=== PATIENT | male | born 1940 | race Caucasian/White ===

== ENCOUNTER 2021-10-20 22:03 | Inpatient (IN) | payer MEDICARE, OTHER ==
[~2021-10-20] VITALS: Ht 175.3 cm; Wt 62.5 kg
[2021-10-20 22:36] LABS: BASOPHILS ABSOLUTE AUTO 0.02 K/mm3 (0.00-0.23); BASOPHILS PERCENT AUTO 0 % (0-2); EOSINOPHILS ABSOLUTE AUTO 0.01 K/mm3 (0.00-0.68); EOSINOPHILS PERCENT AUTO 0 % (0-6); Hematocrit 37.6 % (37.0-53.0); Hemoglobin 12.8 g/dL (13.5-17.5); IMMATURE GRAN ABSOLUTE AUTO 0.05 K/mm3 (0.00-0.10); IMMATURE GRAN PERCENT AUTO 0 % (0-1); LYMPHOCYTES ABSOLUTE AUTO 0.49 K/mm3 (0.84-5.20); LYMPHOCYTES PERCENT AUTO 4 % (21-46); MONOCYTES ABSOLUTE AUTO 1.53 K/mm3 (0.16-1.47); MONOCYTES PERCENT AUTO 13 % (4-13); Mean Corpuscular Volume 85 fL (80-100); Mean Platelet Volume 9.7 fL (9.1-12.4); NEUTROPHILS ABSOLUTE AUTO 9.67 K/mm3 (1.96-9.15); NEUTROPHILS PERCENT AUTO 82 % (41-73); Platelet Count 325 K/mm3 (150-400); RDW Coefficient Variation 12.9 % (11.7-14.2); RDW Standard Deviation 40.1 fL (35.1-46.3); Red Blood Cell Count 4.42 M/mm3 (4.30-5.90); White Blood Cell Count 11.77 K/mm3 (4.00-11.30)
[2021-10-20 22:55] LABS: Alanine Aminotransfer (ALT/SGP 27 U/L (12-78); Albumin, Blood 2.5 g/dL (3.4-5.0); Albumin/Globulin Ratio 0.6 (0.8-1.8); Alk Phos 85 U/L (50-136); Anion Gap 9 mmol/L (6-16); Aspartate Aminotrans (AST/SGOT 25 U/L (12-37); Bilirubin, Total 0.7 mg/dL (0.1-1.0); Blood Urea Nitrogen 19 mg/dL (8-24); Bun/Creatinine Ratio 19.7 (12.0-20.0); CO2, Blood 24 mmol/L (21-32); Chloride, Blood 106 mmol/L (98-108); Creatinine, Blood 0.97 mg/dL (0.60-1.20); Globulin, Blood 4.4 g/dL (2.2-4.0); Glomerular Filtration Rate >60 (60-); Glucose, Blood 185 mg/dL (70-99); Potassium, Blood 3.8 mmol/L (3.5-5.5); Sodium, Blood 139 mmol/L (136-145); Total Protein, Blood 6.9 g/dL (6.4-8.2)
[2021-10-20 23:29] LABS: Influenza A, PCR NEGATIVE (NEGATIVE); Influenza B, PCR NEGATIVE (NEGATIVE); Resp Syncytial Virus, PCR NEGATIVE (NEGATIVE)
[2021-10-21] LABS: SARS-Cov-2 (COVID-19) PCR, MMC POSITIVE (NEGATIVE)
[2021-10-21] MEDS ORDERED: TAMS.4ER PO (00:40)
[2021-10-21 03:52] LABS: BASOPHILS ABSOLUTE AUTO 0.01 K/mm3 (0.00-0.23); BASOPHILS PERCENT AUTO 0 % (0-2); EOSINOPHILS PERCENT AUTO 0 % (0-6); Hematocrit 36.9 % (37.0-53.0); Hemoglobin 12.3 g/dL (13.5-17.5); IMMATURE GRAN ABSOLUTE AUTO 0.05 K/mm3 (0.00-0.10); IMMATURE GRAN PERCENT AUTO 1 % (0-1); LYMPHOCYTES ABSOLUTE AUTO 0.48 K/mm3 (0.84-5.20); LYMPHOCYTES PERCENT AUTO 5 % (21-46); MONOCYTES ABSOLUTE AUTO 0.69 K/mm3 (0.16-1.47); MONOCYTES PERCENT AUTO 7 % (4-13); Mean Corpuscular HGB 28.5 pg (26.0-34.0); Mean Corpuscular HGB Conc 33.3 g/dL (31.5-36.5); Mean Corpuscular Volume 85 fL (80-100); Mean Platelet Volume 9.9 fL (9.1-12.4); NEUTROPHILS ABSOLUTE AUTO 9.42 K/mm3 (1.96-9.15); NEUTROPHILS PERCENT AUTO 88 % (41-73); Platelet Count 318 K/mm3 (150-400); RDW Coefficient Variation 13.1 % (11.7-14.2); RDW Standard Deviation 40.8 fL (35.1-46.3); Red Blood Cell Count 4.32 M/mm3 (4.30-5.90); White Blood Cell Count 10.65 K/mm3 (4.00-11.30)
[2021-10-21 04:05] LABS: Anti-Xa UFH, PHA Monitoring <0.10 IU/mL; International Normalized Ratio 1.14; Prothrombin Time Results 11.9 Sec (9.7-11.5)
[2021-10-21 04:09] LABS: Anion Gap 10 mmol/L (6-16); Blood Urea Nitrogen 17 mg/dL (8-24); Bun/Creatinine Ratio 18.7 (12.0-20.0); CHOL/HDL RATIO 3.5; CO2, Blood 23 mmol/L (21-32); Calcium, Blood 8.8 mg/dL (8.5-10.1); Chloride, Blood 107 mmol/L (98-108); Cholesterol 111 mg/dL (50-200); Creatinine, Blood 0.91 mg/dL (0.60-1.20); Glomerular Filtration Rate >60 (60-); Glucose, Blood 189 mg/dL (70-99); HDL Cholesterol 32 mg/dL (>39); LDL/HDL RATIO 1.9; Low Density Lipoprotein Chol 60 mg/dL (0-110); Potassium, Blood 4.3 mmol/L (3.5-5.5); Sodium, Blood 140 mmol/L (136-145); Triglycerides 97 mg/dL (30-160); Very Low Density Lipoprot Chol 19 mg/dL (6-32)
--- NOTE | 2021-10-21 06:00 | NUR ---
FIRE OFFICER SUMMARY PT IS AXO 4 AND COMMUNICATING APPROPRIATELY. PT HAS DENIED ANY CP OR PRESSURE THIS SHIFT. O2 SATS REMAIN >90% ON 2.5L NC. PT'S BP WNL AND STABLE. TELE SHOWED ST 110'S WHEN HE ARRIVED BUT WAS SR IN THE 70'S AFTER RECIEVING LOPRESSOR. TROPONIN HAS CONTINUED TO RISE AND PROVIDER NOTIFIED W NO NEW ORDERS THE HEPARIN HAD YET TO BE STARTED BEFORE THE LAST TROPONIN WAS DRAWN. PT HAS SLEPT COMFORTABLY IN BED WITH CALL LIGHT IN REACH. HEPARIN GTT RUNNING. WILL REPORT TO ONCOMING CLARICE
--- NOTE | 2021-10-21 09:09 | NUR ---
CARE ASSUMPTION / UPDATE PT A&O X4. ECHO DONE IN RM SHORTLY AFTER CARE ASSUMPTION. MONITOR SHOWING SR-ST, HR 90's-110. SPO2 > 92% ON 5L NC UPON CARE ASSUMPTION. PT THEN DESATING INTO LOW 80's, REQUIRING APPLICATION OF OXYMIZER. RR 20's & SPO2 88-93% ON 12L OXYMIZER. CRITICAL LAB RESULT FOR TROPONIN TRENDING UP. MD NATARAJAN TO PT , UPDATED ON LATEST TROPONIN LEVEL & PT RESPIRATORY STATUS. MD NATARAJAN W/ ORDERS FOR BREATHING TX's PER RT. HEPARING GTT INFUSING PER ORDERS. PT DENIES PAIN/DISCOMFORT, REPORTING BREATHING FEELING MORE RELAXED W/ OXYMIZER. RT NOTIFIED OF NEW RESPIRATORY ORDERS FOR PT. WILL CONTINUE TO MONITOR & PROVIDE CARE.
--- NOTE | 2021-10-21 11:43 | NUR ---
Upon receiving a referral for spiritual care, I visit patient. He shares with me about the events that led to his hospitalization, his life and family history and his views on latter day. Patient tells me that he has absolute peace in the midst of his COVID diagnosis and feels that he will recover rapidly now that he is getting the treatment that he needs. I encourage self-care, reinforce helpful attitudes and provide therapeutic listening and a calming presence. Patient responds well and show signs of an elevated mood. I will continue to remain available to patient and family.
--- NOTE | 2021-10-21 13:22 | NUR ---
OXYGEN UPDATE PT A&O X4. PT W/ DESAT TO 80's WHILE EATING, REQUIRING TEMPORARY INCREASE TO 100% FIO2 & ENCOURAGEMENT TO TAKE DEEP BREATHS IN BETWEEN BITES. PT THEN W/ LITTLE IMPROVEMENT IN SPO2 POST MEAL DESPITE REST & INCREASE IN O2. PT DENIES DISCOMFORT AND SHOWS NO DISTRESS. PT REPOSITIONED ONTO SIDE W/ LITTLE IMPROVEMENT, PT THEN REPOSITIONED INTO PRONE POSITION W/ IMPROVEMENT. PT NOW SPO2 > 90% ON HI-TESS @ 50L, FIO2 60%.
--- NOTE | 2021-10-21 17:48 | NUR ---
OXYGEN UPDATE RT TO RM D/T PT DESAT, REQUIRING INCREASE IN HI-TESS THERAPY & PRONING. RT W/ ADJUSTMENTS TO HI-TESS SETTINGS & THEN W/ TRANSITION TO CPAP. CLIENT SERVICE MANAGER, THIS RN, & RT IN PT RM TO DISCUSS PT CODE STATUS. PT CONFIRMING OKAY FOR INTUBATION IF NEEDED. PT AT BEDSIDE, SAYING "NO" FOR FULL CODE, NOT WANTING PT TO BE INTUBATED IF NEEDED. PT DAUGHTER AT BEDSIDE ENCOURAGING PT TO ALLOW PT TO MAKE OWN DECISION. PT CONFIRMING OKAY FOR INTUBATION IF NEEDED.
--- NOTE | 2021-10-21 18:45 | NUR ---
TRANSFER TO ICU MD REYES NOTIFIED OF PT PROGRESSING RESPIRATORY STATUS W/ PT ON CPAP: 12, 70% O2 & RR 30's. W/ ORDER FOR TRANSFER TO ICU. ALSO MADE AWARE OF PT STATING REMDESEVIR TO NOT BE GIVEN. W/ ORDER FOR REMDESEVIR TO BE DC'd. PT TRANSFERED TO ICU-11 @ APPROX 1830 & REPORT GIVEN TO ACCEPTING RN. PT S/O & DAUGHTER GONE HOME FOR THE NIGHT.
--- NOTE | 2021-10-21 18:51 | NUR ---
TRANSFER TO ICU 11 PT ARRIVED TO ICU 11 VIA BED AT 1838. PT IS AWAKE, ALERT, AND ORIENTED. PT DENIES ANY PAIN, SOB, OR DISCOMFORT AT THIS TIME. PT CURRENTLY ON CPAP OF 12, FIO2 70%. VITAL SIGNS STABLE. RR 30'S. HEPARIN INFUSING AT 17 UNITS/KG/HR THROUGH PERIPHERAL IV. WILL CONTINUE TO MONITOR AND REPORT OFF TO ONCOMING RN.
[2021-10-22 03:31] LABS: BASOPHILS ABSOLUTE AUTO 0.02 K/mm3 (0.00-0.23); BASOPHILS PERCENT AUTO 0 % (0-2); EOSINOPHILS PERCENT AUTO 0 % (0-6); Hematocrit 32.6 % (37.0-53.0); IMMATURE GRAN ABSOLUTE AUTO 0.14 K/mm3 (0.00-0.10); IMMATURE GRAN PERCENT AUTO 1 % (0-1); LYMPHOCYTES ABSOLUTE AUTO 0.62 K/mm3 (0.84-5.20); LYMPHOCYTES PERCENT AUTO 4 % (21-46); MONOCYTES ABSOLUTE AUTO 1.67 K/mm3 (0.16-1.47); MONOCYTES PERCENT AUTO 10 % (4-13); Mean Corpuscular HGB 28.9 pg (26.0-34.0); Mean Corpuscular HGB Conc 33.7 g/dL (31.5-36.5); Mean Corpuscular Volume 86 fL (80-100); NEUTROPHILS ABSOLUTE AUTO 13.92 K/mm3 (1.96-9.15); NEUTROPHILS PERCENT AUTO 85 % (41-73); Platelet Count 313 K/mm3 (150-400); RDW Coefficient Variation 13.2 % (11.7-14.2); RDW Standard Deviation 41.7 fL (35.1-46.3); White Blood Cell Count 16.37 K/mm3 (4.00-11.30)
[2021-10-22 03:45] LABS: Anion Gap 6 mmol/L (6-16); Blood Urea Nitrogen 21 mg/dL (8-24); Bun/Creatinine Ratio 25.9 (12.0-20.0); CO2, Blood 26 mmol/L (21-32); Calcium, Blood 8.5 mg/dL (8.5-10.1); Chloride, Blood 108 mmol/L (98-108); Creatinine, Blood 0.81 mg/dL (0.60-1.20); Glomerular Filtration Rate >60 (60-); Glucose, Blood 188 mg/dL (70-99); Potassium, Blood 4.2 mmol/L (3.5-5.5); Sodium, Blood 140 mmol/L (136-145)
--- NOTE | 2021-10-22 06:10 | NUR ---
Rested through out night. Tolerated CPAP, maintaining O2 sats mid to high 90's. RR 26-30 with no distress. Heparin drip increased at beginning of shift to 19 units, infusing without difficulty. AntiXa in theraputic range this am, will continue same rate and repeat labs to monitor per orders.
--- NOTE | 2021-10-22 07:28 | NUR ---
ASSUME CARE: I have assumed care of this patient.
--- NOTE | 2021-10-22 10:32 | NUR ---
UPDATE: This RN spoke with pt's daughter and updated her on pt status.
--- NOTE | 2021-10-22 18:35 | NUR ---
SHIFT SUMMARY: Pt up in chair for most of day per his preference. Alex was able to stand, transfer, and reposition himself independantly; he tolerated this well while on Arivo. Current Airvo settings at 70%, 40 L/min. Heparin inceased to 21. He uses urinal independantly. Pt spoke to RD to clarify dietary preferences; pt identifies as [employer], following his religous practices and prefers to not eat dairy. Alex's and daughter were at bedside this afternoon interacting with pt; pt and his family were very pleasent to work with.
[2021-10-23 03:34] LABS: Hematocrit 30.6 % (37.0-53.0); Hemoglobin 10.2 g/dL (13.5-17.5); Mean Platelet Volume 10.2 fL (9.1-12.4); Platelet Count 307 K/mm3 (150-400)
--- NOTE | 2021-10-23 06:29 | NUR ---
Changed to CPAP during sleep due to desat down to low 80's. Sats mid 90's most of night with drops into high 80's. Responded well with turning far to side. FiO2 increased to 60% heart rhythem SR with PVC's and PACs documented strips.
--- NOTE | 2021-10-23 19:13 | NUR ---
SHIFT SUMMARY: Pt up in chair for most of day again per his request. His appetite has improved some today. Heparin bolus was given and heparin was increased to 25. FiO2 titrated down to 60. Family at bedside throughout the day.
[2021-10-24 02:29] LABS: Hematocrit 32.4 % (37.0-53.0); Hemoglobin 10.6 g/dL (13.5-17.5); Mean Platelet Volume 10.4 fL (9.1-12.4); Platelet Count 326 K/mm3 (150-400)
--- NOTE | 2021-10-24 06:39 | NUR ---
RESTING QUIETLY AT THIS TIME. HEPARIN INFUSING WITHOUT DIFFICUTIES. NEXT ANTI XA AT 0800. HYDRAULIC JACK ADJUSTER TO CPAP 12/50% FiO2 during night due to low sats. tolerating well. denies needs at this time
--- NOTE | 2021-10-24 15:34 | NUR ---
CODE STATUS UPDATE: This RN spoke with pt's family regarding his code status. and daughter state that pt does not wish to be intubated, however he would still like to receive CPR. Dr. Villalta called and notified; verbal order placed.
--- NOTE | 2021-10-24 15:58 | NUR ---
DNI: Code status updated and yellow limited code order sign hung outside of room.
--- NOTE | 2021-10-24 19:19 | NUR ---
Lengthy conversation with pt and family regarding advance directive, POA and selby. Pt wnat to be full code and will have family with draw care if needed. We discussed in great detail the differnt levels aof care and how to address changes in health. Will follow up they want to do a will, poa and AD. will gete them information.
--- NOTE | 2021-10-24 19:22 | NUR ---
SHIFT SUMMARY: Pt on Airvo and up in charge for most of day again. He returned to bed around 1830. He is tolerating his diet well, but prefers softer foods. Family has been at bedside and very helpful. Pt able to transfer and reposition independantly, only requiring cord management. Heparin continues at 25.
--- NOTE | 2021-10-24 19:52 | NUR ---
PT OXYGEN SAT DROPPED TO 82% ON ARIVO 70% FIO2. WENT INTO PT ROOM AND HE STATED HE HAD SOME SHORTNESS OF BREATH. INCREASED THE FIO2 TO 100% AND CALLED RT TO PLACE PT ON CPAP. OXYGEN SAT RECOVERED TO 93% ON THE 100% FIO2. PT DENIED ANY ACUTE DISTRESS AT THAT TIME. CPAP PLACED ON PT TO IMPROVE OXYGENATION.
--- NOTE | 2021-10-24 21:37 | NUR ---
PT UP TO BEDSIDE COMMODE FOR BM W/CPAP ON AT 55%FIO2. PT DESATURATED INTO THE LOW 80'S. FIO2 INCREASED WHILE PT WAS USING THE BATHROOM. PT SATS WENT TO HIGH 80'S. PT BACK TO BED, TITRATING FIO2 BACK DOWN TOLERATED. SATS GREATER THAN 90%. PT WAS SIGNIFICANTLY SHORT OF BREATH WITH THIS ENDEAVOUR AND IT TOOK SEVERAL MINUTES FOR HIM TO RECOVER.
--- NOTE | 2021-10-25 03:01 | NUR ---
PT HAS HAD DIFFICULTY WHILE VOIDING DUE TO AN INCREASE IN HEART RATE OF 40 BEATS AND A DECREASE IN OXYGEN SAT ON CPAP DESPITE GOING UP ON FIO2 WHEN PT IS TRYING TO VOID IN URINAL. IT TAKES HIM SEVERAL MINUTES TO RECOVER AND HE IS EXTREMELY TACHYPNIC AND FATIGUED AFTER VOIDING.
[2021-10-25 03:35] LABS: Hematocrit 31.2 % (37.0-53.0); Hemoglobin 10.4 g/dL (13.5-17.5)
[2021-10-25 03:52] LABS: Anti-Xa UFH, PHA Monitoring 0.48 IU/mL; International Normalized Ratio 1.18; Prothrombin Time Results 12.3 Sec (9.7-11.5)
--- NOTE | 2021-10-25 07:36 | NUR ---
ASSUMED CARE: PT RESTING QUIETLY IN BED AT THIS TIME. CPAP IN PLACE WITH SETTINGS AT 16 AND 70% FIO2. HEPARIN GTT RUNNING, SETTINGS VERIFIED PER SEP. NSR WITH PACS WITH A RATE 70S TO 80S. NO ACUTE NEEDS OR CONCERNS AT THIS TIME.
[2021-10-25 08:29] LABS: Source, Urine Foley catheter
[2021-10-25 08:43] LABS: Appearance, Urine Clear (Clear); Bilirubin, Urine Neg (Neg); Blood, Urine 1+ (Neg); Color, Urine Yellow (P-Yellow); Glucose Qualitative, Urine Neg (Neg); Ketones, Urine Neg (Neg); Leukocyte Esterase, Urine 1+ (Neg); Nitrite, Urine Neg (Neg); Protein, Urine Neg (Neg); Urobilinogen, Urine NORM (Normal)
--- NOTE | 2021-10-25 08:59 | NUR ---
PT INSISTED ON GETTING TO BSC FOR BM. SPRING ASSEMBLER SUPERVISOR REPORTS PT DESATURATED INTO 70S WHILE ON 100% FIO2 ON AIRVO. TOOK HIM SEVERAL MINUTES TO RECOVER TO LOW 90S. ASKED DR NATARAJAN IF HE WOULD LIKE PULMONOLOGY CONSULT DUE TO PT'S WORSENING STATUS OVERNIGHT. DR NATARAJAN STATES HE WILL DISCUSS CASE WITH DR SUAREZ
[2021-10-25 09:00] LABS: Bacteria Rare /hpf; Red Blood Cells, Urine 0-2 /hpf (0-2); Squamous Epithelial Cells Not Seen /hpf (Few)
--- NOTE | 2021-10-25 10:23 | NUR ---
PALLIATIVE CARE NURSE STATES THEY ARE AWARE OF PT AND HAD A KENISHA CONVERSATION WITH FAMILY YESTERDAY REGARDING CODE STATUS. DUE TO PT HAVING A WORSENING STATUS REGARDING ACTIVITY TOLERANCE, THIS RN PLACED PHONE CALL TO PT'S BUT GOT VOICE MAIL. REQUESTED THAT CALL BACK
--- NOTE | 2021-10-25 12:27 | NUR ---
PT'S AND DAUGHTER CAME TO VISIT PT. UPDATED ON PT'S STATUS THAT HE IS REQUIRING MORE OXYGEN AND NOT TOLERATING ACTIVITY. WARNED THEM THAT HE IS GETTING CLOSER TO NEEDING INTUBATION BUT THERE IS STILL ROOM FOR OTHER INTERVENTION BEFORE THAT. HOSPITALIST SPOKE WITH PING PONG TABLE ASSEMBLER TO MAKE THEM AWARE OF PT'S CASE AND SITUATION. PALLIATIVE CARE CAME TO BEDSIDE TO ANSWER QUESTIONS. PT SITTING UPRIGHT IN BED EATING LUNCH. NO ACUTE NEEDS AT THIS TIME.
--- NOTE | 2021-10-25 14:26 | NUR ---
Patient is alert and verbal. Patient tells me that some times he feels as if he is progressing other times he wonders if he will survive. He is far less confident of his recovery this visit compared to my last visit with patient. Patient is pleasant and enjoys conversation. He talks about how his family keeps him fighting and that he is hoping for the best possible outcome. He is more open to discussion centered around his personal spirituality today and welcomes prayer. I galdly provide prayer. We discuss how he is overall a very positive person and that it is a healthy mindset to focus on recovery and healing but also it is important to realize how deep he is into this virus while simultaneously dealing with other medical complications, which he states that he comprehends. I provide therapeutic listening, a supportive calming presence and gentle peer counselor. I will continue to remain available to patietn and family. Patient responds well and shows signs of being reflective yet hopeful.
--- NOTE | 2021-10-25 18:24 | NUR ---
SHIFT SUMMARY: PT ON AIRVO AT 40L AND 85%. SATTING MID 90S WITH THIS. FAMILY AT BEDSIDE AND HAS BEEN UPDATED TO PT'S STATUS. PT REMAINS ON HEPARIN GTT PER EMAR. PT RESTED TODAY AND USED RINCON CATH AND BEDPAN FOR VOIDING. REPOSITION Q2. NO ACUTE NEEDS OR CONCERNS AT THIS TIME.
--- NOTE | 2021-10-25 20:42 | NUR ---
PT ON ARVO 40L 80%FIO2 -OXYGEN SAT DROPPED TO 82% AND MAINTAINED. FIO2 INCREASED TO 100%. NOTIFED RT VICKY KEARNS AND REQUEST PT TO BE PUT ON CPAP. OXYGEN SAT ON 40L 100% FIO2 ARVO ARE 91%.
[2021-10-26 05:14] LABS: BASOPHILS ABSOLUTE AUTO 0.03 K/mm3 (0.00-0.23); BASOPHILS PERCENT AUTO 0 % (0-2); EOSINOPHILS ABSOLUTE AUTO 0.03 K/mm3 (0.00-0.68); EOSINOPHILS PERCENT AUTO 0 % (0-6); Hematocrit 33.7 % (37.0-53.0); Hemoglobin 11.1 g/dL (13.5-17.5); IMMATURE GRAN ABSOLUTE AUTO 0.42 K/mm3 (0.00-0.10); IMMATURE GRAN PERCENT AUTO 3 % (0-1); LYMPHOCYTES ABSOLUTE AUTO 1.06 K/mm3 (0.84-5.20); LYMPHOCYTES PERCENT AUTO 7 % (21-46); MONOCYTES ABSOLUTE AUTO 1.63 K/mm3 (0.16-1.47); MONOCYTES PERCENT AUTO 11 % (4-13); Mean Corpuscular HGB 28.5 pg (26.0-34.0); Mean Corpuscular HGB Conc 32.9 g/dL (31.5-36.5); Mean Corpuscular Volume 86 fL (80-100); Mean Platelet Volume 10.3 fL (9.1-12.4); NEUTROPHILS ABSOLUTE AUTO 12.19 K/mm3 (1.96-9.15); NEUTROPHILS PERCENT AUTO 79 % (41-73); NRBC ABSOLUTE 0.02 K/mm3 (0.00-0.02); NRBC Auto 0.1 /100 WBC (0.0-0.2); Platelet Count 380 K/mm3 (150-400); RDW Coefficient Variation 13.2 % (11.7-14.2); RDW Standard Deviation 41.4 fL (35.1-46.3); White Blood Cell Count 15.36 K/mm3 (4.00-11.30)
[2021-10-26 05:43] LABS: Anion Gap 7 mmol/L (6-16); Blood Urea Nitrogen 23 mg/dL (8-24); Bun/Creatinine Ratio 28.2 (12.0-20.0); CO2, Blood 29 mmol/L (21-32); Calcium, Blood 8.6 mg/dL (8.5-10.1); Chloride, Blood 102 mmol/L (98-108); Creatinine, Blood 0.82 mg/dL (0.60-1.20); Glomerular Filtration Rate >60 (60-); Glucose, Blood 144 mg/dL (70-99); Potassium, Blood 4.4 mmol/L (3.5-5.5); Sodium, Blood 138 mmol/L (136-145)
--- NOTE | 2021-10-26 08:00 | NUR ---
PT A&OX4. DENIES PAIN AT THIS TIME. ECG SHOWS SR TO ST. BP STABLE. AFEBRILE. LUNGS DIMINISHED THROUGH OUT. SATS >90% ON 40 LITERS/100% HIGH FLOW O2. OCCASIONAL, NON-PRODUCTIVE COUGH. PT DESATS WITH COUGHING SPELLS AND WITH MINIMAL EXERTION. RN SPOKE AT LENGTH WITH PT REGARDING INTUBATION. PT STATES THAT HE DOESN'T WANT TO BE INTUBATED. PT IS AWARE THAT IF IT COMES TO THE POINT WHERE HE NEEDS TO BE INTUBATED AND HE REFUSES, IT MAY LEAD TO HIS DEMISE. PT STATES THAT HE IS "OKAY" WITH THAT. PT CHOOSES TO REMAIN IN HIS CLOTHING FROM HOME. AM CARE, ORAL CARE, CATHETER CARE COMPLETED. NEW [place] PLACED AND PT REPOSITIONED TO HIGH CAZARES'S POSITION FOR BREAKFAST. HE ATE 20% OF BREAKFAST AND DRANK 100% OF HIS ENSURE. THERE IS SCAB NOTED TO PT NOSE. CLEANSED WITH SOAP AND WATER AND MEPITEL PLACED. RINCON TO BSD WITH ADEQUATE AMOUNT OF CLEAR, YELLOW URINE OUTPUT.
--- NOTE | 2021-10-26 10:20 | NUR ---
PT SATS 66% AND RESP 40'S. PT UTILIZING ACCESSORY MUSCLES TO BREATH AND STATES "I CAN'T BREATHE." CPAP 10 WITH FIO2 100% AND SATS SLOWLY RETURNED TO >90%
--- NOTE | 2021-10-26 12:21 | NUR ---
PT TACHYPNEIC WITH RR 40'S. WOB HAS CONTINUED TO INCREASE. PT UTILIZING ACCESSORY MUSCLES TO BREATHE. DR. SUAREZ HAS BEEN CONSULTED. PT REPORTS FEELING "ANXIOUS" BECAUSE HE CAN NOT BREATHE. MED WITH ATIVAN 0.5 MG IVP X 1. NEW FACE MASK PLACED AND PT PLACED ON BIPAP 13/10 WITH FIO2 60%-SATS>90%. PT PLACED IN PRONE POSITION WITH RIGHT ARM UP. RR TO 50'S BRIEFLY AND PT CONTINUED TO BE ANXIOUS-PRECEDEX DRIP INITIATED @ 0.2 MCG/KG/MIN. AFTER SEVERAL MINUTES, RR TO THE 30'S AND PT WOB SIGNIFICANTLY IMPROVED. PT AT BEDSIDE. SHE IS AWARE OF THE PLAN OF CARE.
--- NOTE | 2021-10-26 14:00 | NUR ---
PT CALLED RN AND REPORTED THAT HE WAS UNCOMFORTABLE AND ANXIOUS. REPOSITIONED-STILL IN PRONE POSITION AND PRECEDEX INCREASED TO 0.4 MCG/KG/MIN.
--- NOTE | 2021-10-26 16:00 | NUR ---
PT REPOSITIONED SUPINE PER HIS REQUEST. EXTREMITIES ELEVATED ON PILLOWS. PT TOLERATING BIPAP WELL SATS >90% ON 05/03-FIO2 60%. ORAL CARE COMPLETED. ORAL MUCOSA VERY DRY WITH SOME THICK, STICKY, BROWN SECRETIONS NOTED. PRECEDEX DRIP CONTINUES @ 0.4 MCG/KG/MIN. PT SLEEPS MAINLY WHEN NOT DISTURBED, BUT AWAKENS EASILY AND IS NOT CONFUSED. NS INITIATED @ 75 CC/HR PT IS NPO. URINE OUTPUT REMAINS ADEQUATE. COCCYX IS SLIGHTLY RED-MEPILEX DRESSING PLACED PREVENTATIVE MEASURE-WILL REPOSITION PT EVERY 2 HOURS WELL.
--- NOTE | 2021-10-26 18:02 | NUR ---
PT RESTING QUIETLY WITH PRECEDEX @ 0.4 MCG/KG/MIN. HR 70'S WITH FREQUENT PAC'S.RR 24 AND NOT LABORED AT THIS TIME.PT AT BEDSIDE. INTAKE 810 VS. 1450 OUT THIS SHIFT.
--- NOTE | 2021-10-27 01:06 | NUR ---
2330: Sudden drop in O2 sats down to 67%, RR in 50's, very anxious. Precedex titrated up. RT to room for assistance. FiO2 increased to 100% Continues to Sat in 70's. attempted proning for increased sats. Dr Jacobo called and advised. Spoke with patient regarding intubation and does want intubation. 0000 Meds given for emergent intubation. Intubated by Dr Jacobo. 0010 sudden loss of pulse ox reading, heart dropping into 40's. pulse checked, unable to palpate pulse, carodid or femoral. CPR started. See code blue sheet. 0027 Family called and advised of code blue and outcome very poor. Family requests CPR be stopped. Due to poor prognosis. [address] Aranda called to advise of .
--- NOTE | 2021-10-27 02:25 | NUR ---
family arrived to bedside. all belongings will be taken by spouse except wedding band and dentures.
--- NOTE | 2021-10-27 02:52 | NUR ---
update to belongings. spouse took dentures. remaining belongings at bedside on body is wedding band
== END 2021-10-27 00:27 | DRG 177 ==
LOC: ER 22:03 → PCU 10-21 02:39 → ICUW 10-21 02:39 → PCU 10-21 02:41 → ICUW 10-21 18:04
PROVIDERS: Emergency Medicine; Family Medicine; ADMIT Internal Medicine
PROC: 5A09357 Assistance with Respiratory Ventilation, Less than 24 Consecutive Hours, Continuous Positive Airway Pressure (ICD-10-PCS; principal; 2021-10-21)
PROC: 3E0333Z Introduction of Anti-inflammatory into Peripheral Vein, Percutaneous Approach (ICD-10-PCS; 2021-10-21)
PROC: 8E0ZXY6 Isolation (ICD-10-PCS; 2021-10-21)
PROC: 5A12012 Performance of Cardiac Output, Single, Manual (ICD-10-PCS; 2021-10-21)
PROC: XW0DXM6 Introduction of Baricitinib into Mouth and Pharynx, External Approach, New Technology Group 6 (ICD-10-PCS; 2021-10-21)
PROC: 3E033XZ Introduction of Vasopressor into Peripheral Vein, Percutaneous Approach (ICD-10-PCS; 2021-10-21)
PROC: XW033E5 Introduction of Remdesivir Anti-infective into Peripheral Vein, Percutaneous Approach, New Technology Group 5 (ICD-10-PCS; 2021-10-21)
DX: U07.1 COVID-19 (principal); J12.82 Pneumonia due to coronavirus disease 2019; J96.01 Acute respiratory failure with hypoxia; I26.09 Other pulmonary embolism with acute cor pulmonale; I21.4 Non-ST elevation (NSTEMI) myocardial infarction; Z66 Do not resuscitate; Z51.5 Encounter for palliative care; I46.9 Cardiac arrest, cause unspecified; K59.00 Constipation, unspecified; N40.0 Benign prostatic hyperplasia without lower urinary tract symptoms; J84.112 Idiopathic pulmonary fibrosis; I35.0 Nonrheumatic aortic (valve) stenosis; Z88.0 Allergy status to penicillin; Z79.899 Other long term (current) drug therapy; Z88.1 Allergy status to other antibiotic agents; Z87.891 Personal history of nicotine dependence
CPT/HCPCS: 0241U; 31500; 36415; 51702; 71045; 71260; 80048; 80053; 80061; 81001; 83036; 83605; 83735; 83880; 84145; 84484; 85014; 85018; 85025; 85049; 85520; 85610; 87040; 87086; 92950; 93005; 93010; 93306; 94002; 94640; 94660; 94664; 94760; 94762; 96374; 96375; 99285-25; A9270; C1751; C9399; J0248; J0696; J1100; J1644; J2060; J2250; J2270; J2704; J2920; J7030; J7050; Q9967